=== PATIENT | female | born 1995 | race American Indian/Alaskan Native ===

== ENCOUNTER 2017-03-28 20:18 | Outpatient (CLI) | payer MEDICAID ==
[2017-03-28] MEDS ORDERED: LACTATED RINGERS 500 ML IV ONE (20:28)
[2017-03-28 20:38] VITALS: BP 131/67
[2017-03-28 21:33] LABS: Bacteria,Urine 1+ /HPF (Negative); Bilirubin,Urine NEG (Negative); Blood,Urine NEG (Negative); Ketones,Urine NEG (Negative); Leukocyte Esterase,Urine NEG (Negative); Mucus,Urine FEW /HPF; Nitrite,Urine NEG (Negative); Protein,Urine <15 mg/dL mg/dL (Negative); Urobilinogen,Urine < 2.0 mg/dL (<2.0)
[2017-03-28 21:34] LABS: WBC,Urine < 1.0 /HPF (0.0-6.0)
== END 2017-03-28 22:15 | disposition home or self-care (01) ==
LOC: TRG 20:18
PROVIDERS: ATTEND Obstetrics & Gynecology
DX: O26.892 Other specified pregnancy related conditions, second trimester (principal); R10.9 Unspecified abdominal pain; R30.9 Painful micturition, unspecified; Z3A.21 21 weeks gestation of pregnancy
CPT/HCPCS: 36415; 59025; 81001; 87255